=== PATIENT | female | born 1965 | race Caucasian/White ===

== ENCOUNTER → 2017-08-18 | Outpatient (CLI) | payer OTHER ==
[~2017-08-18] MED LIST: ESC10 PO; ESTR1PAT18 TOP; FLUO-202 PO; FLUO40CA76 PO; GINK120C PO; KET10 PO; MULT-1335 PO; OMEG-11 PO; PER PO
--- NOTE | 2017-08-19 09:13 | RADIOLOGY IMAGING REPORT ---
FACILITY: [facility] - [place] PATIENT NAME: TAYLOR CRUZ : [id number] MR: [id number] V: [id number] EXAM DATE: ORDERING PHYSICIAN: ANDIE TORRES TECHNOLOGIST: Charlotte Hernández PROCEDURE:BILATERAL DIGITAL SCREENING MAMMOGRAM WITH CAD ASSISTED INTERPRETATION & 3D TOMOSYNTHESIS COMPARISON:Prior mammograms 08/03/14. INDICATIONS:screening FINDINGS: Moderately heterogeneous fibroglandular tissue is seen throughout the breasts. The parenchymal pattern has remained stable allowing for difference in mammographic technique & patient positioning. There is no evidence of malignant appearing mass, malignant appearing calcifications or other secondary sign of malignancy in either breast. DIAGNOSTIC CATEGORY 1--NEGATIVE. RECOMMENDATIONS: ROUTINE MAMMOGRAM AND CLINICAL EVALUATION. IMPRESSION: BIRADS 1: Negative No significant abnormality is seen Dictated by: Isabel Duff M.D. on 08/18/2017 at 17:06 Transcribed by: ARABELLA on 08/19/2017 at 9:08 Approved by: Isabel Duff M.D. on 08/19/2017 at 9:11 [facility]
== END ==
LOC: MAMO 07:04
PROVIDERS: ATTEND Physician Assistant
DX: Z12.31 Encounter for screening mammogram for malignant neoplasm of breast (principal)
CPT/HCPCS: 77063; 77067

== ENCOUNTER → 2018-09-06 | Outpatient (CLI) | payer OTHER ==
[~2018-09-06] MED LIST changes: +AMOX-559 PO; +BUPR-124 PO; +BUPR300T56 PO; +DICL-190 PO; +FLUO-177 PO; +FLUT16SP19 NS; +KETO30CA16 IM; +PROM-110 PO; +TEST5GEL6
== END ==
LOC: LAB 14:26
PROVIDERS: ATTEND Nurse Practitioner Primary Care
DX: M54.5 Low back pain (principal)
CPT/HCPCS: 81001

== ENCOUNTER → 2018-09-16 | Outpatient (CLI) | payer OTHER | LOC: LAB 16:39 | PROVIDERS: ATTEND Nurse Practitioner Primary Care | DX: R10.9 Unspecified abdominal pain (principal) | CPT/HCPCS: 81001 ==

== ENCOUNTER → 2018-09-16 | Outpatient (CLI) | payer OTHER ==
[~2018-09-16] MED LIST changes: +IOPAMIDOL 76% 150 ML INFUS BTL 150 ML ONE
--- NOTE | 2018-09-16 08:55 | RADIOLOGY IMAGING REPORT ---
FACILITY: [facility] - [place] PATIENT NAME: Rosalba Green : 1965 MR: [id number] V: [id number] EXAM DATE: ORDERING PHYSICIAN: LIZZ GALLAGHER TECHNOLOGIST: [facility] Patient: Rosalba Green : 1965 Visit/Account:[id number] Date of Sevice: 09/16/2018 EXAMINATION: CT abdomen without IV contrast CT abdomen with IV contrast CT pelvis without IV contrast CT pelvis with IV contrast HISTORY: Right low back pain. Left arm melanoma. TECHNIQUE: Spiral scans were obtained through the abdomen and pelvis before and during injection of nonionic iodinated intravenous contrast. Sagittal and coronal reformatted images are also submitted . One of the following dose optimization techniques was utilized in the performance of this exam: Autom ated exposure control; adjustment of the mA and/or kV according to the patient's size; or use of an i terative reconstruction technique. Specific details can be referenced in the facility's radiology C T exam operational policy. CONTRAST: 75 mL of IV Isovue-370 COMPARISON: None available. FINDINGS: Lower chest: Negative. Liver / biliary: Negative. Pancreas: Negative. Spleen: Negative. Adrenal glands: Negative. Kidneys: Negative. Pelvic structures: Hysterectomy. Otherwise negative. Bowel: Colonic diverticulosis with no evidence of acute diverticulitis. Normal appendix. Unremarkab le small bowel. Peritoneum / retroperitoneum / mesenteries: Negative. Vessels: Mild aortoiliac calcification without aneurysm. Lymph nodes: Negative. Musculoskeletal / Body wall: Mild degenerative changes in the spine and hips. No aggressive osseous lesions. IMPRESSION: No acute abnormality in the abdomen or pelvis. Report Dictated By: Shiv Guillermo MD at 09/16/2018 8:36 AM Report E-Signed By: Shiv Guillermo MD at 09/16/2018 8:51 AM WSN:[email or web address]
== END ==
LOC: CT 01:00
PROVIDERS: ATTEND Nurse Practitioner Primary Care
DX: M54.5 Low back pain (principal)
CPT/HCPCS: 74178; Q9967

== ENCOUNTER → 2019-01-11 | Outpatient (CLI) | payer OTHER ==
[~2019-01-11] MED LIST changes: -IOPAMIDOL 76% 150 ML INFUS BTL 150 ML ONE
--- NOTE | 2019-01-18 10:49 | RADIOLOGY IMAGING REPORT ---
FACILITY: [facility] PATIENT NAME: TAYLOR CRUZ : [id number] MR: [id number] V: [id number] EXAM DATE: [id number] ORDERING PHYSICIAN: BETH FRANCIS TECHNOLOGIST: Lazara Caceres PROCEDURE: BILATERAL DIGITAL SCREENING MAMMOGRAM WITH CAD ASSISTED INTERPRETATION & 3D TOMOSYNTHESIS. REASON FOR STUDY: Screening. COMPARISON: 08/18/2017 & 08/03/2014. VIEWS OBTAINED: D & 3D full field CC & MLO projections. BREAST DENSITY: The breast tissue demonstrates scattered fibroglandular tissue elements. MAMMOGRAM FINDINGS: There is no suspicious mass, calcification, or architectural distortion. IMPRESSION: BIRADS 1: Negative. DIAGNOSTIC CATEGORY 1--NEGATIVE. RECOMMENDATIONS: ROUTINE MAMMOGRAM AND CLINICAL EVALUATION IN 1YR. Dictated by: Abhinav Hughes M.D. on 01/12/2019 at 13:16 Transcribed by: ARABELLA on 01/13/2019 at 9:59 Approved by: Abhinav Arriaza on 01/18/2019 at 10:44 [facility]
== END ==
LOC: MAMO 02:06
PROVIDERS: ATTEND Internal Medicine
DX: Z12.31 Encounter for screening mammogram for malignant neoplasm of breast (principal)
CPT/HCPCS: 77063; 77067